=== PATIENT | male | born 1935 | race Caucasian/White ===

== ENCOUNTER 2017-12-30 15:44 | Inpatient (IN) | payer OTHER ==
[~2017-12-30] VITALS: Ht 175.3 cm; Wt 129.5 kg
[~2017-12-30 15:44] MED LIST: ANTIVERT25 MG PO; ASPIRIN325 MG PO; ATIVAN1 MG PO; ATORVASTATIN CA20 MG PO; Aspirin E.C. PO; BACTRIM,SEPT1 TABLET PO; CELEBREX200 MG PO; CLOPIDOGREL75 MG PO; COMBIGAN O20 DROP/5 LEFT EYE; DIOVAN HCT 11 TABLET PO; DYNAPEN500 MG PO; Diovan HCT 160/12.5 PO; Ecotrin PO; Feosol PO; Glucophage PO; LACTINEX PACKE1 EACH PO; LEVAQUIN500 MG PO; LO-DOSE ASPIRIN81 M1 PO; LOPRESSOR25 MG PO; LOSARTAN-HCTZ1 EAC1 PO; LOSARTAN-HCTZ1 EACH PO; Lasix PO; MECLIZINE HCL25 MG PO; METOPROLOL TART25 MG PO; Micro-K,K-Tab,K-Dur, PO; PRAVASTATIN SOD80 MG PO; PROAIR HFA8.5 GM IH; Proventil,Ventolin H IH; SENOKOT S,PE1 TABLET PO; TAMIFLU75 MG PO; THERAGRAN1 TABLET PO; VALIUM5 MG PO; VALSARTAN-HCTZ1 EAC1 PO; VASOTEC10 M1 PO; Vasotec PO; Vicodin,Norco 5/325 PO; XARELTO20 MG PO; ZITHROMAX Z-PA250 MG PO; ZOFRAN ODT4 MG PO
[2017-12-30 17:04] LABS: BASOPHIL (%) 0.5 % (0-1); BASOPHIL COUNT 0.1 K/uL (0-0.1); EOSINOPHIL (%) 1.8 % (0-5); EOSINOPHIL COUNT 0.2 K/uL (0-0.3); HEMATOCRIT 43.5 % (38.0-50.0); HEMOGLOBIN 14.2 G/DL (12.5-16.6); IMMATURE GRANULOCYTE (%) 0.3 % (0.0-0.7); LYMPHOCYTE COUNT 1.7 K/uL (1.0-2.8); MCH 27.7 PG (29.0-34.0); MCHC 32.6 G/DL (30.0-36.0); MONOCYTE (%) 12.1 % (3-12); MONOCYTE COUNT 1.3 K/uL (0-0.8); NEUTROPHIL (%) 69.3 % (45-76); NEUTROPHIL COUNT 7.3 K/uL (1.8-6.4); PLATELET COUNT 183 K/uL (156-360); RBC DIS.WIDTH-SD 46.5 % (39-53); RED BLOOD COUNT 5.12 M/uL (4.00-5.50); WHITE BLOOD COUNT 10.5 K/uL (4.1-10.2)
[2017-12-30 17:12] LABS: CHLORIDE 101 mEq/L (99-109); POTASSIUM 3.5 mEq/L (3.7-5.4); SODIUM 141 mEq/L (136-147)
[2017-12-30 17:14] LABS: GLUCOSE 137 mg/dL (70-99)
[2017-12-30 17:17] LABS: CREATININE 1.1 mg/dL (0.6-1.3); GFR ESTIMATE (CALCULATED) > 59 mL/min/ (58.99-99999)
[2017-12-30 17:18] LABS: UREA NITROGEN (BUN) 18 mg/dL (9-23)
[2017-12-30] MEDS ORDERED: CLEOCIN300 MG PO (21:16)
[2017-12-30] MEDS ORDERED: FUROSEMIDE40 MG PO (21:17)
[2017-12-30] MEDS ORDERED: LOSARTAN POTASS50 MG PO (21:17)
[2017-12-30] MEDS ORDERED: FUROSEMIDE20 MG PO (21:18)
[2017-12-30] MEDS ORDERED: ATORVASTATIN CA40 MG PO (21:18)
[2017-12-30] MEDS ORDERED: XARELTO20 MG PO (21:19)
[2017-12-30] MEDS ORDERED: PROAIR HFA8.5 GM IH (21:20)
[2017-12-31] VITALS (7 sets, daily range): BP systolic 136–182; BP diastolic 70–88
[2017-12-31 06:25] LABS: HEMATOCRIT 42.4 % (38.0-50.0); HEMOGLOBIN 13.3 G/DL (12.5-16.6); MCH 27.1 PG (29.0-34.0); MCHC 31.4 G/DL (30.0-36.0); MCV 86.5 FL (86-99); PLATELET COUNT 173 K/uL (156-360); RBC DIS.WIDTH-CV 14.9 % (11.8-14.6); RBC DIS.WIDTH-SD 47.8 % (39-53); WHITE BLOOD COUNT 11.6 K/uL (4.1-10.2)
[2017-12-31 06:48] LABS: CHLORIDE 103 MEQ/L (99-109); GFR ESTIMATE (CALCULATED) > 59 mL/min/ (58.99-99999); POTASSIUM 3.9 MEQ/L (3.7-5.4); SODIUM 140 MEQ/L (136-147); UREA NITROGEN (BUN) 19 mg/dL (9-23)
[2017-12-31 06:56] LABS: GLUCOSE 250 mg/dL (70-99)
[2018-01-01 04:31] VITALS: BP 136/95
[2018-01-01 06:23] LABS: BASOPHIL (%) 0.2 % (0-1); EOSINOPHIL (%) 1.8 % (0-5); EOSINOPHIL COUNT 0.2 K/uL (0-0.3); HEMATOCRIT 41.3 % (38.0-50.0); IMMATURE GRANULOCYTE (%) 0.4 % (0.0-0.7); LYMPHOCYTE COUNT 2.2 K/uL (1.0-2.8); MCH 27.3 PG (29.0-34.0); MCHC 31.5 G/DL (30.0-36.0); MCV 86.8 FL (86-99); MONOCYTE (%) 10.5 % (3-12); MONOCYTE COUNT 1.3 K/uL (0-0.8); NEUTROPHIL (%) 69.1 % (45-76); NEUTROPHIL COUNT 8.6 K/uL (1.8-6.4); PLATELET COUNT 195 K/uL (156-360); RBC DIS.WIDTH-CV 15.1 % (11.8-14.6); RBC DIS.WIDTH-SD 48.3 % (39-53); RED BLOOD COUNT 4.76 M/uL (4.00-5.50); WHITE BLOOD COUNT 12.4 K/uL (4.1-10.2)
[2018-01-01 06:55] VITALS: BP 168/92
[2018-01-01 13:50] VITALS: BP 154/72
[2018-01-02 00:25] VITALS: BP 163/74
[2018-01-02 05:11] LABS: BASOPHIL (%) 0.5 % (0-1); EOSINOPHIL (%) 4.5 % (0-5); EOSINOPHIL COUNT 0.4 K/uL (0-0.3); HEMATOCRIT 38.7 % (38.0-50.0); IMMATURE GRANULOCYTE (%) 0.3 % (0.0-0.7); LYMPHOCYTE (%) 24.6 % (15-42); LYMPHOCYTE COUNT 1.9 K/uL (1.0-2.8); MCH 27.6 PG (29.0-34.0); MCV 89.2 FL (86-99); MONOCYTE (%) 12.9 % (3-12); NEUTROPHIL (%) 57.2 % (45-76); NEUTROPHIL COUNT 4.4 K/uL (1.8-6.4); PLATELET COUNT 163 K/uL (156-360); RBC DIS.WIDTH-CV 15.2 % (11.8-14.6); RBC DIS.WIDTH-SD 49.7 % (39-53); RED BLOOD COUNT 4.34 M/uL (4.00-5.50); WHITE BLOOD COUNT 7.7 K/uL (4.1-10.2)
[2018-01-02 06:19] LABS: CHLORIDE 105 MEQ/L (99-109); CREATININE 1.2 MG/DL (0.6-1.3); GFR ESTIMATE (CALCULATED) > 59 mL/min/ (58.99-99999); GLUCOSE 125 mg/dL (70-99); POTASSIUM 4.1 MEQ/L (3.7-5.4); SODIUM 140 MEQ/L (136-147); UREA NITROGEN (BUN) 27 mg/dL (9-23)
[2018-01-02 08:12] VITALS: BP 143/89
[2018-01-02 15:57] VITALS: BP 149/71
[2018-01-02 23:27] VITALS: BP 150/78
[2018-01-03 06:23] LABS: BASOPHIL (%) 0.6 % (0-1); EOSINOPHIL (%) 5.9 % (0-5); EOSINOPHIL COUNT 0.4 K/uL (0-0.3); HEMATOCRIT 38.2 % (38.0-50.0); HEMOGLOBIN 11.9 G/DL (12.5-16.6); IMMATURE GRANULOCYTE (%) 0.3 % (0.0-0.7); LYMPHOCYTE (%) 23.7 % (15-42); LYMPHOCYTE COUNT 1.7 K/uL (1.0-2.8); MCH 27.7 PG (29.0-34.0); MCHC 31.2 G/DL (30.0-36.0); MCV 88.8 FL (86-99); MONOCYTE (%) 11.7 % (3-12); MONOCYTE COUNT 0.8 K/uL (0-0.8); NEUTROPHIL (%) 57.8 % (45-76); NEUTROPHIL COUNT 4.2 K/uL (1.8-6.4); NRBC (%) 0.3 /100 WBC (0-0); PLATELET COUNT 171 K/uL (156-360); RBC DIS.WIDTH-CV 15.1 % (11.8-14.6); RBC DIS.WIDTH-SD 49.3 % (39-53); WHITE BLOOD COUNT 7.2 K/uL (4.1-10.2)
[2018-01-03 06:43] LABS: CHLORIDE 106 MEQ/L (99-109); GFR ESTIMATE (CALCULATED) > 59 mL/min/ (58.99-99999); GLUCOSE 120 mg/dL (70-99); POTASSIUM 3.6 MEQ/L (3.7-5.4); SODIUM 143 MEQ/L (136-147); UREA NITROGEN (BUN) 19 mg/dL (9-23)
[2018-01-03 08:00] VITALS: BP 141/80
[2018-01-03 16:15] VITALS: BP 160/80
[2018-01-03 19:00] VITALS: BP 154/79
[2018-01-03 23:33] VITALS: BP 148/90
[2018-01-04 07:25] VITALS: BP 179/92
[2018-01-04] MEDS ORDERED: BACITRACIN3.5 GM LEFT EYE (09:15)
[2018-01-04 15:26] VITALS: BP 133/78
== END 2018-01-04 16:29 | disposition home health service (06) | DRG 988 ==
LOC: EME 15:44 → 2EAST 22:51 → EDOF 22:51 → ENRESERV 22:52 → 2EAST 12-31 00:17
PROVIDERS: Emergency Medicine; Hospitalist; Student in an Organized Health Care Education/Training Program
PROC: 089 Eye, Drainage (ICD-10-PCS; principal; 2018-01-01)
DX: L03.213 Periorbital cellulitis (principal); H04.322 Acute dacryocystitis of left lacrimal passage; B95.61 Methicillin susceptible Staphylococcus aureus infection as the cause of diseases classified elsewhere; H04.412 Chronic dacryocystitis of left lacrimal passage; I48.2 Chronic atrial fibrillation; I10 Essential (primary) hypertension; I25.10 Atherosclerotic heart disease of native coronary artery without angina pectoris; E11.9 Type 2 diabetes mellitus without complications; J45.909 Unspecified asthma, uncomplicated; D72.829 Elevated white blood cell count, unspecified; E66.9 Obesity, unspecified; Z68.41 Body mass index [BMI] 40.0-44.9, adult; Z79.01 Long term (current) use of anticoagulants; Z79.82 Long term (current) use of aspirin; Z95.5 Presence of coronary angioplasty implant and graft; Z85.46 Personal history of malignant neoplasm of prostate
CPT/HCPCS: 70481; 71045; 76937; 80048; 80202; 83605; 85025; 85027; 87040; 87070; 87075; 87077; 87147; 87186; 87205; 94799; 99281; 99285; J0295; J0696; J1200; J2930; J3370; J7030; J7050; S0032